=== PATIENT | male | born 1985 | race Caucasian/White ===

== ENCOUNTER → 2020-06-01 06:32 | Outpatient (CLI) | payer BC, SELFPAY ==
[2020-06-01 19:10] LABS: SARS-CoV-2 RNA PCR Negative
== END ==
PROVIDERS: PCP Internal Medicine; Visit Provider Surgery
DX: Z01.812 Encounter for preprocedural laboratory examination (principal); Z20.822 Contact with and (suspected) exposure to COVID-19
CPT/HCPCS: C9803; U0003; U0005

== ENCOUNTER 2020-06-03 09:22 | Outpatient (CLI) | payer BC, SELFPAY | END 2020-06-03 09:23 | disposition home or self-care (01) | PROVIDERS: PCP Internal Medicine; Visit Provider Surgery | DX: K40.90 Unilateral inguinal hernia, without obstruction or gangrene, not specified as recurrent (principal); Z01.818 Encounter for other preprocedural examination | CPT/HCPCS: 36415; 86850; 86900; 86901 ==

== ENCOUNTER 2020-06-05 00:51 | Day surgery (SDC) | payer BC, SELFPAY ==
[2020-05-30 10:04] VITALS: BMI 19.2
--- NOTE | 2020-06-04 11:02 | WPDANESEPPF ---
Anes - Initial Pre Proc Eval Procedure: Operation Date: 06/05/20 07:30 Proposed Procedures p Laparoscopic Left Inguinal Hernia Repair with Mesh, Davinci Assisted - David Alberto DO Date/Time: 06/04/20 11:02 Surgeon: David Alberto DO Pre Op Diagnosis: left inguinal hernia Patient Data Age: 34 Gender: M Height: 1.88 m Weight: 68 kg Allergies Allergy/AdvReac Type Severity Reaction Status Date / Time Penicillins Allergy Unknown Hives Verified 06/05/20 06:33 Home Medications Medication Instructions Recorded Confirmed Type trazodone 50 mg tablet 50 mg PO DAILY PRN tablet 05/17/20 06/05/20 History Patient hx anesthesia problems: post op nausea/vomiting Family hx anesthesia problems: none PMFSH Surgical History Surgical History H/O thumb surgery (~01/2019) Family History Family History Mother Patient's mother is in good health Father Patient's father is in good health Sibling Patient's brother is in good health Social History Social History (Updated 06/05/20 @ 06:53 by Dusty Lozano DO) Smoking status: Never smoker Alcohol intake: current Alcohol use details: 4 beers/day Spiritual care concerns: No Anes - Eval Final PreProcedure Day of Procedure 06/04/20 11:02 Patient weight: thin Heart: regular rate and rhythm Lungs: clear to auscultation and normal air movement Airway: Mallampati scale class II Neurological: alert and oriented Last oral intake: >/= 8 hours ASA classification: II Emergent: no Anesthetic plan: proceed Anesthesia type and monitoring: general ETT and standard monitoring Informed Consent: The patient's anesthetic plan and its attendant risks and benefits were discussed with the patient/family/POA. Questions were solicited and answers provided to the satisfaction of the patient/family/POA.
[2020-06-05] VITALS (9 sets, daily range): BP systolic 91–141; BP diastolic 56–89; PULSE 41–62; RESP 12–20; TEMP 36.3–36.5; O2SAT 99–100
[2020-06-05] MEDS: LACTATED RINGERS 1,000 ML 30 ML IV CONT ×3 (06:46→11:04)
[2020-06-05] MEDS: KETOROLAC 15 MG/ML VIAL (*BKC) IV PUSH (06:52)
[2020-06-05] MEDS: ACETAMINOPHEN 500 MG TABLET 1000 MG PO (06:52)
[2020-06-05] MEDS: FAMOTIDINE 20 MG/2 ML VIAL IV PUSH (07:07)
[2020-06-05] MEDS: SCOPOLAMINE 1.5 MG PATCH TRANSDERM (07:07)
--- NOTE | 2020-06-05 07:16 | WPDHPUPDATE1 ---
History and Physical Update Update Date/Time: 06/05/20 07:16 History and Physical has been reviewed, including an updated exam of the patient. There are NO changes in the patient's condition. Risks, benefits, and alternatives have been discussed and questions answered. Patient agrees to proceed with procedure.
[2020-06-05] MEDS: CLINDAMYCIN 900 MG/D5W 50 ML 900 MG/50 ML PIGGYBACK 50 MG IVPB (07:22)
[2020-06-05] MEDS: BUPIVACAINE/EPINEPHRINE 0.5% 30 ML VIAL INFILTRATE (07:46)
--- NOTE | 2020-06-05 08:10 | SUR.OPER ---
LEFT INGUINAL MESH PROGRIP 24/01 EXP 2023-01-09, LOT [id number]
--- NOTE | 2020-06-05 09:14 | SUR.OPER ---
RIGHT HIP BRUISE UNCHANGED POST OP
--- NOTE | 2020-06-05 09:14 | PM.PROC ---
Procedure Note - Detailed Date of procedure: 06/05/20 Pre-op diagnosis: left inguinal hernia Post-op diagnosis: same (Indirect LIH) Procedure performed: Laparoscopic left inguinal hernia repair with Progrip mesh, da Enedina assisted Description of procedure: Procedure as well as risks, benefits, and alternatives were discussed with the patient. Written consent was obtained and placed in chart prior to procedure. Patient was brought back to surgical suite. He was placed supine on operating table. Time-out was done to confirm patient and procedure. He was then intubated by Anesthesia Department. His abdomen was prepped and draped in sterile fashion using chlorhexidine prep. 0.5% bupivacaine with epinephrine was infiltrated at each location for incision. A 12 millimeter transverse incision was made just superior to the umbilicus using a 15 blade scalpel. Blunt dissection was carried out down to the linea alba. A vertical incision was made at the linea alba using a 15 blade scalpel. The peritoneum was then bluntly entered. A 12 millimeter trocar was inserted and carbon dioxide insufflation was used to create a pneumoperitoneum. A camera was inserted and the abdominal cavity was inspected. The patient was placed in slight Trendelenburg position. An 8 millimeter incision was made on the right lateral abdomen and an 8 millimeter trocar was inserted under direct visualization. Another 8 millimeter incision was made in the left lateral abdomen and an 8 millimeter trocar was inserted under direct visualization. The robotic arms were brought up to the patient's bedside and secured to the ports. The camera and instruments were inserted. I then moved over to the robotic console and took control of the camera and instruments. After careful inspection of the abdominal cavity, I began scoring the peritoneum along the left lower quadrant using scissors with electrocautery. The preperitoneal plane was entered and this was carefully dissected caudally along the inferior epigastric vessels. Careful dissection with scissors with electrocautery and blunt dissection was used to continue this dissection. I dissected far enough laterally to allow for mesh placement, and also dissected medially to identify the pubic arch and Lexx's ligament. The hernia sac was identified and carefully dissected posteriorly. The cord contents were also identified and the peritoneum was carefully dissected far enough posteriorly to allow for mesh placement. Once an adequate pocket was created, I then placed the mesh within the preperitoneal pocket and carefully unfolded it. The mesh was centered on the hernia defect with adequate overlap circumferentially. The inferior edge of the mesh was inspected to ensure that it was far enough away from the peritoneal edge. The mesh appeared in proper position overlying the entire myopectineal orifice. The peritoneum was then closed over the mesh using a 3-0 V-lock running absorbable suture. The robotic instruments were removed. The robotic arms were disengaged from the ports and moved away from the bedside. The patient was flattened out in bed, the ports were removed under direct visualization, and the pneumoperitoneum was released. The fascia of the umbilical incision was approximated using an 0 Vicryl [id number] suture. The skin of the incisions was approximated using 4-0 Monocryl subcuticular suture, and Exofin glue was applied on top. The patient was awakened from anesthesia, extubated, and transferred to recovery. Implants: Progrip Mesh 10cm x 15cm Anesthesia: GETA and local (0.5% bupivicaine with epi) Surgeon: David Alberto DO Estimated blood loss (mL): 5 Drains: No Packing: No Pathology: none sent Complications: No immediate complications Condition: stable Disposition: same day Findings: This is a 34-year-old man who presents with a gradually worsening left inguinal hernia over the past 3-4 years. He states this started out a
--- NOTE | 2020-06-05 09:42 | SUR.PHASEI ---
Patient's O2 removed at 0925. Patient is sating at 100% RA since removal of simple mask.
--- NOTE | 2020-06-05 10:58 | SUR.PHASEII ---
PT UP TO BATHROOM; UNABLE TO VOID.
== END 2020-06-05 11:46 | disposition home or self-care (01) ==
PROVIDERS: PCP Internal Medicine; Visit Provider Surgery
PROC: 8E0Y4CZ Robotic Assisted Procedure of Lower Extremity, Percutaneous Endoscopic Approach (ICD-10-PCS; CPT 49650; principal; 2020-06-05 07:30)
DX: K40.90 Unilateral inguinal hernia, without obstruction or gangrene, not specified as recurrent (principal)
CPT/HCPCS: 49650; S2900; A9270; C1781; J1100; J1885; J2250; J2405; J2704; J2710; J3010; J7030; J7120

== ENCOUNTER 2023-09-16 14:32 | Outpatient (CLI) | payer BC, SELFPAY ==
--- NOTE | ~2023-09-16 | XR_ITS ---
3 VIEWS LUMBAR SPINE Ordering provider: ITZEL Jeff History: . M54.16 - Radiculopathy, lumbar region . Comparison: None. FINDINGS: VERTEBRAL BODIES: An attempt of lumbarization of S1. No visible fracture or subluxation. DISK SPACES: Normal. SOFT TISSUES: Normal. Loss of lordosis which may indicate muscular spasm. IMPRESSION: No acute osseous abnormality lumbar spine. Reviewed, dictated and finalized at location A.
== END 2023-09-16 14:33 ==
PROVIDERS: PCP Internal Medicine; Visit Provider Clinical Nurse Specialist
DX: M54.16 Radiculopathy, lumbar region (principal)
CPT/HCPCS: 72100

== ENCOUNTER 2023-09-24 15:30 | Outpatient (CLI) | payer BC, SELFPAY ==
--- NOTE | ~2023-09-24 | MR_ITS ---
EXAMINATION: MR lumbar spine wo con DATE: 09/24/2023 16:17 INDICATION: Radiculopathy, lumbar region. Low back pain. Right leg and foot pain. TECHNIQUE: Magnetic resonance imaging (MRI) of the lumbar spine was performed without intravenous con trast. Sequences included sagittal T2-weighted FSE, sagittal T2-weighted FS FSE, sagittal T1-weighted FSE, and axial T2-weighted FSE. COMPARISON: Lumbar spine radiograph 09/16/2023 FINDINGS: There is 10 degrees levoscoliosis of lumbar spine. S1 is a transitional segment. Vertebral body heights are normal. There is mildly decreased disc height at L5-S1. The distal spinal cord signa l intensity is normal. The conus medullaris is at L1. The following disc levels are specifically disc ussed: L1-L2: The disc does not extend beyond the endplate margin. There is no facet joint osteoarthritis. T here is no neural foraminal stenosis. There is no central canal stenosis. L2-L3: The disc is bulging. There is mild bilateral facet joint osteoarthritis. There is mild right n eural foraminal stenosis. There is mild central canal stenosis. L3-L4: The disc is bulging and has an annular fissure. There is mild bilateral facet joint osteoarthr itis. There is mild bilateral neural foraminal stenosis. There is mild central canal stenosis. L4-L5: The disc is bulging and has an annular fissure. There is moderate bilateral facet joint osteoa rthritis. There is mild bilateral neural foraminal stenosis. There is mild central canal stenosis. L5-S1: The disc is bulging and has an annular fissure. There is moderate bilateral facet joint osteoa rthritis. There is moderate right and mild left neural foraminal stenosis. There is mild central tera l stenosis. IMPRESSION: 1. Moderate right neural foraminal stenosis at L5-S1. Otherwise mild lumbar spondylosis. 2. Lumbar levoscoliosis. Reviewed, dictated and finalized at location E. IMPRESSION: 1. Moderate right neural foraminal stenosis at L5-S1. Otherwise mild lumbar spo ndylosis. 2. Lumbar levoscoliosis.
== END 2023-09-24 15:31 ==
LOC: GOSHIMG 15:30
PROVIDERS: PCP Internal Medicine; Visit Provider Clinical Nurse Specialist
DX: M43.06 Spondylolysis, lumbar region (principal); M48.07 Spinal stenosis, lumbosacral region; M41.86 Other forms of scoliosis, lumbar region
CPT/HCPCS: 72148

== ENCOUNTER 2024-11-30 07:02 | Outpatient (CLI) | payer BC, SELFPAY ==
--- NOTE | ~2024-11-30 | XR_ITS ---
2 views of the left calcaneus CLINICAL HISTORY: Pain FINDINGS: No fracture or dislocation seen. Joint spaces are intact. Osseous alignment anatomic. Soft tissues are unremarkable. IMPRESSION: Unremarkable exam. Reviewed, dictated and finalized at location M. IMPRESSION: Unremarkable exam.
== END 2024-11-30 07:03 | disposition home or self-care (01) ==
PROVIDERS: PCP Internal Medicine; Visit Provider Nurse Practitioner
DX: M79.672 Pain in left foot (principal)
CPT/HCPCS: 73650